=== PATIENT | male | born 1960 | race Caucasian/White ===

== ENCOUNTER 2017-03-06 10:18 | Inpatient (IN) | payer OTHER ==
[~2017-03-06] VITALS: Ht 180.3 cm; Wt 99.8 kg
[2017-03-06] MEDS ORDERED: LISI40TA PO (10:35)
[2017-03-06] MEDS ORDERED: OMEP20TA PO (10:35)
[2017-03-06] MEDS ORDERED: HYDR12.53 PO (10:35)
[2017-03-06] MEDS ORDERED: HYDR-3194 PO (10:35)
[2017-03-06] MEDS ORDERED: PRAV20TA2 PO (10:35)
[2017-03-06] MEDS ORDERED: METO50TA2 PO (10:35)
[2017-03-06] MEDS ORDERED: ZOFRAN ONE (10:46)
[2017-03-06] MEDS ORDERED: APRESOLINE ONE (10:46)
[2017-03-06] MEDS ORDERED: APRESOLINE IV STA (10:56)
[2017-03-06] MEDS ORDERED: ZOFRAN IV STA (10:56)
[2017-03-06 11:01] LABS: BASOPHIL % 0.1 % (0.0-0.2); EOSINOPHIL % 0.1 % (0.0-5.0); HEMOGLOBIN 15.7 g/dL (13.9-16.3); LYMPHOCYTES # 1.3 10^3/uL (1.0-4.8); LYMPHOCYTES % 6.1 % (24.0-44.0); MEAN CELL HGB 30.4 pg (26-34); MEAN CELL HGB CONCENTRATION 34.6 g/dL (33-37); MEAN CORP VOLUME 87.8 fL (78-100); MONOCYTES # 1.2 10^3/uL (0.3-0.8); MONOCYTES % 5.6 % (5.0-12.0); NEUTROPHILS % 87.9 % (41.0-85.0); RED CELL DISTRIBUTION WIDTH 13.7 % (11.5-14.5); WHITE BLOOD CELL 21.7 10^3/uL (4.5-11.0)
--- NOTE | 2017-03-06 11:02 | ER.PDOC ---
General Chief Complaint: Dizziness Stated Complaint: DIZZY Time seen by MD: 10:59 Source: patient Exam Limitations: no limitations History of Present Illness Initial Comments Dizziness for 2 days. Has also been nauseated and vomiting and not able to drink his medicine for blood pressure. Occurred: yesterday Severity: moderate Usually: walks w/o assistance Worsened By: nothing Allergies: Coded Allergies: No Known Allergies (Unverified , 03/06/17) Home Meds Reported Medications Omeprazole (OMEPRAZOLE) 20 Mg Tablet.dr, 1 TAB PO DAILY, #90 TAB 1 Refill 03/06/17 Lisinopril (LISINOPRIL) 40 Mg Tablet, 1 TAB PO DAILY, #30 TAB 5 Refills 03/06/17 Hydrochlorothiazide (HYDROCHLOROTHIAZIDE) 12.5 Mg Capsule, 1 CAP PO DAILY, #30 CAP 5 Refills 03/06/17 Hydralazine Hcl (HYDRALAZINE HCL) 25 Mg Tablet, 1 TAB PO TID, #90 TAB 5 Refills 03/06/17 Pravastatin Sodium (PRAVASTATIN SODIUM) 20 Mg Tablet, 1 TAB PO DAILY, #30 TAB 5 Refills 03/06/17 Metoprolol Tartrate 50MG (LOPRESSER 50MG) 50 Mg Tablet, 1 TAB PO BID, #60 TAB 5 Refills 03/06/17 Past Medical History Medical History: cardiac problems, hypertension, renal disease Surgical History: cardiac cath, stent Social History Smoking: non-smoker Alcohol Use: occassionally Drug Use: none Review of Systems Constitutional: no symptoms reported Ears: dizziness Respiratory: no symptoms reported Cardiovascular: no symptoms reported Gastrointestinal: no symptoms reported Genitourinary: no symptoms reported Musculoskeletal: no symptoms reported All Other Systems: Reviewed and Negative Physical Exam General Appearance: alert, no distress Neck: supple Respiratory: no resp distress, breath sounds nml CVS: reg rate & rhythm, heart sounds.nml Abdomen: non-tender, no organomegaly, no distention Skin: color nml, no rash, warm/dry Extremities: non-tender, nml ROM, no pedal edema Neuro/Psych: nml orientation, nml speech/cognition, nml mood/affect Cranial Nerves: nml as tested, no evidence of acute CVA Sensorimotor: nml motor, nml sensation Results/Orders Results/Orders Laboratory Tests Test 03/06/17 10:50 White Blood Count 21.7 10^3/uL (4.5-11.0) Red Blood Count 5.17 10^6/uL (4.50-5.90) Hemoglobin 15.7 g/dL (13.9-16.3) Hematocrit 45.4 % (37.0-53.0) Mean Corpuscular Volume 87.8 fL (78-100) Mean Corpuscular Hemoglobin 30.4 pg (26-34) Mean Corpuscular Hemoglobin Concent 34.6 g/dL (33-37) Red Cell Distribution Width 13.7 % (11.5-14.5) Platelet Count 315 10^3/uL (150-400) Mean Platelet Volume 11.0 fL (7.8-11.0) Neutrophils (%) (Auto) 87.9 % (41.0-85.0) Lymphocytes (%) (Auto) 6.1 % (24.0-44.0) Monocytes (%) (Auto) 5.6 % (5.0-12.0) Neutrophils # (Auto) 19.0 10^3/uL (1.8-7.7) Lymphocytes # (Auto) 1.3 10^3/uL (1.0-4.8) Monocytes # (Auto) 1.2 10^3/uL (0.3-0.8) Absolute Immature Granulocyte (auto 0.05 10^3 u/L (0-2) Eosinophils % 0.1 % (0.0-5.0) Basophils % 0.1 % (0.0-0.2) Basophils # 0.0 10^3/uL (0.0-0.1) Eosinophil Count 0.0 10^3/uL (0.0-0.2) Prothrombin Time 9.9 SEC (9.8-11.9) Prothrombin Time INR (Non-Therap) 0.9 Activated Partial Thromboplast Time 24.3 SEC (24.67-30.72) D-Dimer 1.30 mg/L (0.19-0.41) Sodium Level 138 mmol/L (132-145) Potassium Level 4.2 mmol/L (3.6-5.2) Chloride Level 103.0 mmol/L (96-109) Carbon Dioxide Level 23.3 mmol/L (20.0-32) Anion Gap 15.9 Blood Urea Nitrogen 38 mg/dL (7-18) Creatinine 2.24 mg/dL (0.59-1.40) Estimated GFR () 36.9 (>/=60) BUN/Creatinine Ratio 16.0 Glucose Level 144 mg/dL (70-110) Calcium Level 8.5 mg/dL (8.4-10.5) Total Bilirubin 0.3 mg/dL (0.2-1.0) Aspartate Amino Transf (AST/SGOT) 23 U/L (0-35) Alanine Aminotransferase (ALT/SGPT) 26 U/L (12-78) Alkaline Phosphatase 82 U/L (50-136) Total Creatine Kinase 75 U/L (39-308) Creatine Kinase MB 3.3 ng/mL (0.5-3.6) Troponin I 0.02 ng/mL (0.00-0.05) Pro-B-Type Natriuretic Peptide 1295 pg/mL (0-125) Total Protein 6.2 g/dL (6.4-8.2) Albumin 2.2 g/dL (3.4-5.0) Globulin 4.0 Percent Immature Gran (Cell Imm) 0.20 % (0.00-0.50) Administered Medications Medications (Trade) Dose Ordered Sig/Marco Route PRN Reason Start Time Stop Time Status Last Admin Dose Admin Ondansetron HCl (Zofran) 4 mg STAT STAT IV 03/06/17 10:56 03/06/17 10:58 DC 03/06/17 11:02 Hydralazine HCl (Apresoline) 10 mg STAT STAT IV 03/06/17 10:56 03/06/17 10:58 DC 03/06/17 11:01 EKG/XRAY/CT/US XRAY: chest (Nothing acute) CT Comments: Nothing acute intracranially Departure Time of Disposition: 12:12 Disposition: 09 ADMITTED INPATIENT Impression: Primary Impression: Dehydration Additional Impressions: Acute kidney injury Leukocytosis Hypertensive urgency Nausea & vomiting Condition: Stable Referrals: PCP,UNKNOWN (PCP) PRIMARY CARE PROVIDER Comments Admitted to Dr. Velasquez Problem Qualifiers Additional Impressions: Leukocytosis Leukocytosis type: unspecified Qualified Codes: D72.829 - Elevated white blood cell count, unspecified Nausea & vomiting Vomiting type: unspecified Vomiting Intractability: intractable Qualified Codes: R11.2 - Nausea with vomiting, unspecified ZACHARY,GOETZ E MD Mar 06, 2017 11:02
--- NOTE | 2017-03-06 11:05 | NUR ---
CT PT TAKEN TO CT VIA WHEELCHAIR
--- NOTE | 2017-03-06 11:17 | NUR ---
CT PT BACK FROM CT
--- NOTE | 2017-03-06 11:22 | DIREP ---
PROCEDURE:CT HEAD OR BRAIN W/O CONTRAST COMPARISON:None. INDICATIONS:Dizziness TECHNIQUE:CT images were created without intravenous contrast. FINDINGS: VENTRICLES:Mild ventriculomegaly with mild atrophy and mild white matter changes noted. CEREBRUM:Normal cerebral morphology with appropriate oh white matter differentiation. No acute infarct, bleed or mass lesion is seen. No acute or chronic epidural, subdural or subarachnoid hemorrhage is seen. No edema, midline shift or increased intracranial pressure is seen. CEREBELLUM:Negative. No posterior fossa infarcts or mass lesions are seen. BRAINSTEM:Negative. BASAL CISTERNS:Negative. HEMORRHAGE:No MASS LESION:No ACUTE INFARCT:No SKULL:Normal. SINUSES:Normal. OTHER:None CONCLUSION:Mild atrophy with mild white matter changes. No acute infarct, bleed or mass lesion is seen. Dictated by: Sreekanth Montes MD on 03/06/2017 at 11:20 AM
[2017-03-06 11:23] LABS: CALCIUM 8.5 mg/dL (8.4-10.5); CARBON DIOXIDE 23.3 mmol/L (20.0-32)
--- NOTE | 2017-03-06 11:30 | DIREP ---
PROCEDURE:CHEST X-RAY, AP PORTABLE COMPARISON:None. INDICATIONS:Dizziness FINDINGS: LUNGS/PLEURA:No significant pulmonary parenchymal abnormalities. No effusions. VASCULATURE:Normal. Unremarkable pulmonary vasculature. CARDIAC:Normal. No cardiac silhouette abnormality or cardiomegaly. MEDIASTINUM:Atherosclerotic aorta with no visible aneurysm. BONES:Normal. No fracture or visible bony lesion. OTHER:Negative. CONCLUSION: No cardiopulmonary abnormality is identified. Dictated by: Vimal Garsia MD on 03/06/2017 at 11:28 AM
--- NOTE | 2017-03-06 11:37 | NUR ---
DR GOLDY WINSLOW IN THE ED TALKING WITH DR SHARMA
--- NOTE | 2017-03-06 12:00 | NUR ---
SEPSIS PROTOCOL PATIENT WITH A HEART RATE GREATER THAN 90 AT TIMES WITH A WBC OF 21.7. DR. SHARMA NOTIFIED. SEPSIS PROTOCOL STARTED. ABG ORDERED AND FLUIDS STARTED. NO SOURCE OF INFECTION NOTED AT THIS TIME BUT UA RESULTS ARE STILL IN PROGRESS.
--- NOTE | 2017-03-06 12:07 | NUR ---
DR. GOLDY MALDONAOD MBA CALLED DR. WINSLOW REGARDING SEPSIS PROTOCOL AND TO START ANTIBIOTICS. DR. WINSLOW VERBALIZED TO NOT GIVEN PATIENT ANY ANTIBIOTICS AT THIS TIME THE ELEVATED WHITE COUNT IS LIKELY FROM STRESS. DR. SHARMA VERBALIZED UNDERSTANDING.
[2017-03-06] MEDS ORDERED: NS IV STA (12:08)
--- NOTE | 2017-03-06 12:15 | NUR ---
TRANSFER PATIENT TRANSFERRED TO MED SURG AT THIS TIME. ARASELI RODNEY GIVEN REPORT. VERBALIZED UNDERSTANDING AND DENIES FURTHER QUESTIONS. ARASELI AND RAJINDER RN NOTIFIED OF SEPSIS PROTOCOL THAT IS STILL ONGOING. VERBALIZED UNDERSTANDING.
--- NOTE | 2017-03-06 12:17 | PRM.ACF1 ---
Date and Time Date and Time Time: 12:16 Admission Criteria Forms DEHYDRATION Clinical Indications for Admission to Inpatient Care ([place]/check or initial the applicable condition/criteria) Admission is indicated for 1or more of the following (1)(2)(3) [ x]I. Serious cause for dehydration requiring acute hospitalization(e.g., bowel obstruction, increased intracranial pressure, infectious cause) [x ]II. Inpatient admission required [A] rather than observation care (see Dehydration:Observation Care guideline as appropriate)because of ANY ONE of the following (4)(5) [ ]a) Vomiting that is severe or persistent [ ]a) Dehydration that is severe or persistent [ ]a) IV fluid required rather than oral rehydration to replace significant ongoing(eg, for greater than 24 hours)losses(greaterthan3 L/f2himxap ) (6) [ ]a) Parenteral nutrition regimen that must be implemented on inpatient basis [ ]a) Other condition, treatment, or monitoring requiring inpatient admission Extended stay beyond goal length of stay may be needed for (1)(2)(3)(9) [ ]a) Chronic severe dehydration [ ]b) Persistent vital sign changes, severe electrolyte imbalance, or diagnosed cause of dehydration that requires continued hospitalization(e.g., bowel obstruction, increased intracranial pressure) [ ]c) Severe comorbid illness (e.g., renal failure, heart failure, poorly controlled diabetes) [ ]d) Older patients (75 years or older) The original [employer] content created by [employer] has been revised. The portions of the content which have been revised are identified through the use of italic text, and [facility] has neither reviewed nor approved the modified material. All other unmodified content is copyright [employer]. Please see references footnoted in the original [employer] edition 2014 BSIHNU SHARMA MD Mar 06, 2017 12:16
[2017-03-06] MEDS ORDERED: NS 1000ML 1,000 ML ONE (12:21)
[2017-03-06 12:29] LABS: BE(B) 0.9 mmol/L (-2.0-2.0)
[2017-03-06 12:33] LABS: APPEARANCE,URINE CLEAR (CLEAR); BILIRUBIN,URINE NEGATIVE (NEGATIVE); UA COLOR YELLOW (YELLOW); UROBILINOGEN,URINE NORMAL (NEGATIVE)
[2017-03-06 12:40] LABS: WBC,URINE 0-2 WBC/HPF (0-2)
--- NOTE | 2017-03-06 12:40 | NUR ---
ARRIVAL PT ARRIVED TO [facility] AT THIS TIME. REPORT RECEIVED FROM JAMES JACOBSON AND ASSUMED CARE OF PT
--- NOTE | 2017-03-06 13:00 | NUR ---
ASSESSMENT ASSESSMENT COMPLETE AT THIS TIME. PT C/O NAUSEA. DR. WINSLOW NOTIFIED. ORDER RECEIVED FOR PHENERGAN 12.5MG IVP PRN. ADMINISTERED PER PRN ORDERS. LUNGS CTA. RESPIRATIONS EVEN AND NONLABORED. ABD SOFT AND NONDISTENDED. BOWEL SOUNDS ACTIVE X4. NO SWELLING NOTED TO BLE. RADIAL AND PEDAL PULSES PRESENT AND WNL. ALL NEEDS MET. CALL LIGHT WITHIN REACH.
[2017-03-06] MEDS ORDERED: NS 100ML 100 ML IV ONE (13:13)
[2017-03-06] MEDS: HNS 1000ML/KCL 20MEQ 1,000 ML IV SCH ×2 (13:19→21:45)
[2017-03-06] MEDS ORDERED: PHENERGAN IV PRN (13:30)
--- NOTE | 2017-03-06 14:21 | DIREP ---
PROCEDURE:US KIDNEYS-BILAT COMPARISON:None. INDICATIONS:ARF with CKD stage 3, dehydration, HTN TECHNIQUE:Ultrasound examination was performed of the kidneys and bladder. FINDINGS: RIGHT KIDNEY:12.87 cm x 5.39 cm x 6.30 cm; cortex measures 1.56 cm LEFT KIDNEY:12.85 cm x 6.39 cm x 5.55 cm; cortex measures 1.64 cm RIGHT KIDNEY: Normal. No hydronephrosis. LEFT KIDNEY: Normal. No hydronephrosis. The corticomedullary differentiation is normal. No hydronephrosis, or renal stones is seen. No cyst, or solid lesion identified in the kidneys. No perinephric fluid is seated treated BLADDER:Normal. OTHER:Negative. CONCLUSION:Negative renal sonogram. Dictated by: MAGNOLIA Physician on 03/06/2017 at 02:18 PM ld
[2017-03-06 14:23] VITALS: BP 178/96
[2017-03-06] MEDS: APRESOLINE PO SCH ×2 (14:46→20:10)
[2017-03-06 15:53] VITALS: BP 165/85
--- NOTE | 2017-03-06 19:14 | NUR ---
REPORT REPORT GIVEN TO ONCOMING SHIFT AND CARE RELINQUISHED
[2017-03-06 19:39] VITALS: BP 156/87
[2017-03-06] MEDS: LOPRESSOR PO SCH (20:10)
[2017-03-06] MEDS ORDERED: ZOCOR PO SCH (21:00)
--- NOTE | 2017-03-06 22:19 | HPH ---
ADMIT DATE: 03/06/2017 The patient is being placed under observation to Med-Surg. PRIMARY CARE PHYSICIAN: Out of town. ADMITTING DIAGNOSES: 1. Nausea, vomiting with dehydration. 2. Acute renal failure with chronic kidney disease, stage III. 3. Massive hypertension. CHIEF COMPLAINT: Vomiting and not feeling well. HISTORY OF PRESENT ILLNESS: The patient is a pleasant 56-year-old gentleman with known hypertension who has been working out in the field. He states that, however, he has been trying to keep fluids down since his kidney specialist recommended that he stay hydrated. However, yesterday he started to have increasing nausea and nonbilious vomiting. He denies any abdominal pain and no diarrhea, but he felt very nauseated during this time. He threw up several times that was nonbloody in nature. No fevers reported, no chills. Due to his nausea and vomiting, he could not take his blood pressure medicines, but with his increasing nausea and vomiting and not feeling well, he presented to the ER. He denies any syncope. No lethargy. No trauma. Again, he has been off his medications since he has been having nausea and vomiting. He cannot keep anything down. PAST MEDICAL HISTORY: Significant for hypertension. He does have nephropathy noted, some cardiac problems and some coronary artery disease. PAST SURGICAL HISTORY: He has had a cardiac catheterization with stent placed elsewhere. SOCIAL HISTORY: He denies any smoking. No illicit drug use. No moderate alcohol use. FAMILY HISTORY: Asked and noncontributory for this admission. ALLERGIES: NO KNOWN DRUG ALLERGIES. MEDICATIONS: Medications he is on include omeprazole, lisinopril, hydrochlorothiazide, hydralazine, pravastatin and metoprolol. PHYSICAL EXAMINATION: VITAL SIGNS: Temperature is 97.7, pulse rate 70s, respirations 18, blood pressure initially 178/96, O2 sats are 96%. My physical exam is as follows: GENERAL: He appeared dehydrated when I talked to him. HEENT: Oropharynx was clear. NECK: Supple. HEART: S1, S2 audible. No murmurs. LUNGS: Clear bilaterally. ABDOMEN: Good bowel sounds, soft abdomen. No rebound, no guarding noted. No masses felt. EXTREMITIES: No pitting edema. No rashes. 2+ distal pulses were noted. LABORATORY DATA: Labs were done in the ER. White count was elevated at 21,700, hemoglobin 15.7, platelet count of 315. Coags had a D-dimer of 1.3, otherwise normal. UA had positive protein with some blood and glucose. Chemistry panel showed sodium 138, potassium 4.2, BUN 38, creatinine 2.2, glucose 144. ProBNP was 1295. Troponin was negative. CK was 75. Albumin was 2.2. IMAGING STUDIES: He had a head CT that did not show any acute abnormalities. Chest x-ray was clear. An EKG did not show any acute ST segment changes. ASSESSMENT: We have this gentleman with dizziness and with nausea, vomiting, dehydration. He may have a viral syndrome with elevated blood pressure and elevated white count. I will aggressively hydrate him overnight and repeat some labs in the morning and restart him back on his blood pressure medicines except his hydrochlorothiazide for the time being and follow him clinically in the hospital to see if he improves. I will get a renal ultrasound as well with his history of nephropathy. Nery Velasquez MD DR: JOSE/andrew JOB# [id number]
[2017-03-07 00:28] VITALS: BP 151/84
[2017-03-07 04:05] VITALS: BP 159/92
[2017-03-07] MEDS: HNS 1000ML/KCL 20MEQ 1,000 ML IV SCH ×2 (05:50→12:34)
[2017-03-07 06:25] LABS: CARBON DIOXIDE 23.1 mmol/L (20.0-32)
[2017-03-07 06:31] LABS: BASOPHIL # 0.1 10^3/uL (0.0-0.1); BASOPHIL % 0.4 % (0.0-0.2); EOSINOPHIL # 0.3 10^3/uL (0.0-0.2); HEMOGLOBIN 13.6 g/dL (13.9-16.3); LYMPHOCYTES % 14.6 % (24.0-44.0); MEAN CELL HGB 30.6 pg (26-34); MEAN CELL HGB CONCENTRATION 33.9 g/dL (33-37); MEAN CORP VOLUME 90.3 fL (78-100); MEAN PLATELET VOLUME 10.6 fL (7.8-11.0); MONOCYTES % 7.5 % (5.0-12.0); NEUTROPHIL # 10.2 10^3/uL (1.8-7.7); NEUTROPHILS % 75.2 % (41.0-85.0); RED CELL DISTRIBUTION WIDTH 13.7 % (11.5-14.5); WHITE BLOOD CELL 13.5 10^3/uL (4.5-11.0)
[2017-03-07] MEDS: APRESOLINE PO SCH (08:52)
[2017-03-07] MEDS: LOPRESSOR PO SCH (08:52)
[2017-03-07] MEDS ORDERED: ZESTRIL PO SCH (09:00)
[2017-03-07] MEDS ORDERED: PROTONIX PO SCH (09:00)
--- NOTE | 2017-03-07 09:21 | NUR ---
DISCHARGE PLANNING: SS VISITED WITH PT REGARDING DISCHARGE PLANNING. PT LIVES HOME WITH HIS IN [place], BUT IS CURRENTLY STAYING ALONE AT THE [facility] WHILE HE IS WORKING AT THE [employer]. PT IS INDEPENDENT AND WORKS DAILY. PT DOES NOT USE ANY DME, AND DENIES NEEDING ADDITIONAL RESOURCES AT THIS TIME. PT DOES HAVE HEALTH INSURANCE, IT WAS JUST NOT TAKEN UPON ADMISSION. PT GAVE SS HIS INSURANCE CARDS SO THEY COULD BE GIVEN TO THE BUSINESS OFFICE. SS PROVIDED MYLENE, ADMITTING DIRECTOR, WITH A COPY OF PT'S INSURANCE INFORMATION. SS ALSO NOTIFIED TOMA, FINANCIAL COUNSELOR OF PT INSURANCE STATUS. NO FURTHER NEEDS NOTED OR IDENTIFIED AT THIS TIME. PT SAFETY HANDOUT ADDRESSED, NO QUESTIONS ASKED, UNDERSTANDING VERBALIZED. SS TO CONTINUE TO FOLLOW AND MONITOR DISCHARGE PLANNING NEEDS.
[2017-03-07 09:36] VITALS: BP 172/93
[2017-03-07 09:37] VITALS: BP 159/92
[2017-03-07 12:10] VITALS: BP 163/86
[2017-03-07 12:46] VITALS: BP 163/86
--- NOTE | 2017-03-07 15:15 | DSH ---
DATE OF DISCHARGE: 03/07/2017 ADMITTING DIAGNOSES: 1. Nausea, vomiting with dehydration. 2. Leukocytosis. 3. Acute renal failure secondary to dehydration with chronic kidney disease stage 3. 4. Hypertension. DISCHARGE DIAGNOSES: 1. Viral syndrome with dehydration, resolving. 2. Leukocytosis, resolving. 3. Chronic kidney disease stage 3 with hypertension. HOSPITAL COURSE: The patient is a pleasant 56-year-old gentleman who has been working around the [facility]. He acutely became sick with nausea and vomiting and he came into the ER dehydrated. His creatinine was up to 2.7 and his white count was up to 21,000, no fever was reported. He appeared dehydrated in the ER. He was given 1 liter of fluid bolus and I started him on IV fluids up on the floor. Overnight, he has done quite well. He feels a lot better today. No nausea, no vomiting reported. He is taking p.o. intake well. His vital signs are stable. He is afebrile. His creatinine has improved to 1.7 and his white count is down to 13,000. I have explained to him that he probably had a viral syndrome that caused him to become dehydrated quickly and with his nausea and vomiting that just accelerated the process. I did a renal ultrasound that was normal. At this point, he is stable. He feels great to go home. I have asked him to resume his home diet and activity level and follow up with his PCP down in [facility] in 2 weeks' time and I have asked him to stay hydrated in the meantime. He will continue his home medications for his blood pressure as well. Nery Velasquez MD DR: JOSE/andrew JOB# [id number]
--- NOTE | 2017-03-09 05:53 | PRM.ACF1 ---
Admission Criteria Forms DEHYDRATION Clinical Indications for Admission to Inpatient Care ([place]/check or initial the applicable condition/criteria) Admission is indicated for 1or more of the following (1)(2)(3) [X]I. Serious cause for dehydration requiring acute hospitalization(e.g., bowel obstruction, increased intracranial pressure, infectious cause) [X]II. Inpatient admission required [A] rather than observation care (see Dehydration:Observation Care guideline as appropriate)because of ANY ONE of the following (4)(5) [ ]a) Vomiting that is severe or persistent [X]a) Dehydration that is severe or persistent [ ]a) IV fluid required rather than oral rehydration to replace significant ongoing(eg, for greater than 24 hours)losses(greaterthan3 L/x3sbkdlp ) (6) [ ]a) Parenteral nutrition regimen that must be implemented on inpatient basis [ ]a) Other condition, treatment, or monitoring requiring inpatient admission Extended stay beyond goal length of stay may be needed for (1)(2)(3)(9) [ ]a) Chronic severe dehydration [ ]b) Persistent vital sign changes, severe electrolyte imbalance, or diagnosed cause of dehydration that requires continued hospitalization(e.g., bowel obstruction, increased intracranial pressure) [ ]c) Severe comorbid illness (e.g., renal failure, heart failure, poorly controlled diabetes) [ ]d) Older patients (75 years or older) The original [employer] content created by [employer] has been revised. The portions of the content which have been revised are identified through the use of italic text, and [facility] has neither reviewed nor approved the modified material. All other unmodified content is copyright [employer]. Please see references footnoted in the original [employer] edition 2015 Is [facility]/Saida's added/comple: YES ILAN RAYMUNDO CDS Mar 09, 2017 05:53
== END 2017-03-07 14:20 | disposition home or self-care (01) | DRG 641 ==
LOC: ER 10:18 → MS 11:50
PROVIDERS: ADMIT Pediatrics; ATTEND Pediatrics
DX: E86.0 Dehydration (principal); N17.9 Acute kidney failure, unspecified; N18.3 Chronic kidney disease, stage 3 (moderate); I12.9 Hypertensive chronic kidney disease with stage 1 through stage 4 chronic kidney disease, or unspecified chronic kidney disease; D72.829 Elevated white blood cell count, unspecified; I16.0 Hypertensive urgency; N28.9 Disorder of kidney and ureter, unspecified; B34.9 Viral infection, unspecified; I25.10 Atherosclerotic heart disease of native coronary artery without angina pectoris; Z95.5 Presence of coronary angioplasty implant and graft
CPT/HCPCS: 36415; 36600; 70450; 71010; 76770; 80048; 80053; 81000; 82550; 82553; 82803; 83880; 84484; 85025; 85379; 85610; 85730; 87040; 93005; 96361; 96374; 96375; 99285; J0360; J2405; J2550; J7030; J7050